=== PATIENT | female | born 1990 | race Caucasian/White ===

== ENCOUNTER 2018-06-30 10:33 | Emergency (ER) | payer OTHER ==
[~2018-06-30] VITALS: Ht 162.6 cm; Wt 67.0 kg
[2018-06-30 11:37] VITALS: BP 132/81
[2018-06-30] MEDS ORDERED: PENI250T2 PO (11:52)
== END 2018-06-30 12:02 | disposition home or self-care (01) ==
LOC: ER 10:33
DX: K04.7 Periapical abscess without sinus (principal); Z88.2 Allergy status to sulfonamides
CPT/HCPCS: 99283

== ENCOUNTER 2022-08-31 16:53 | Emergency (ER) | payer MEDICAID ==
[~2022-08-31] VITALS: Ht 163.8 cm; Wt 78.0 kg
[2022-08-31 17:34] VITALS: BP 113/68
[2022-08-31] MEDS ORDERED: PENI250T2 PO (17:59)
[2022-08-31] MEDS ORDERED: NAPR-56 PO (17:59)
== END 2022-08-31 18:20 | disposition home or self-care (01) ==
LOC: ER 16:53
DX: K04.7 Periapical abscess without sinus (principal); Z88.2 Allergy status to sulfonamides; Z79.899 Other long term (current) drug therapy; Z79.2 Long term (current) use of antibiotics
CPT/HCPCS: 99283

== ENCOUNTER 2023-07-17 12:54 | Emergency (ER) | payer MEDICAID ==
[~2023-07-17] VITALS: Ht 165.1 cm; Wt 75.0 kg
[2023-07-17 13:08] VITALS: BP 136/81; PULSE 95; RESP 20; TEMP 97.2; O2SAT 98
[2023-07-17] MEDS ORDERED: CLIN300C3 PO (13:21)
[2023-07-17] MEDS ORDERED: IBUP-1984 PO (13:21)
[2023-07-17] MEDS ORDERED: HYDR-3965 PO (13:21)
[2023-07-17] MEDS ORDERED: clindamycin 150mg capsule PO STA (13:28)
[2023-07-17] MEDS ORDERED: ibuprofen tablet 400 MG TABLET PO ONE (13:30)
== END 2023-07-17 13:38 | disposition home or self-care (01) ==
LOC: ER 12:54
DX: K04.7 Periapical abscess without sinus (principal)
CPT/HCPCS: 99283

== ENCOUNTER 2023-10-13 10:45 | Emergency (ER) | payer MEDICAID ==
[~2023-10-13] VITALS: Ht 162.6 cm; Wt 72.9 kg
[2023-10-13 11:08] VITALS: BP 127/71; PULSE 83; RESP 16; TEMP 98.3; O2SAT 99
[2023-10-13] MEDS ORDERED: CLIN300C71 PO (11:13)
[2023-10-13] MEDS ORDERED: NAPR-56 PO (11:13)
== END 2023-10-13 11:18 | disposition home or self-care (01) ==
LOC: ER 10:45
DX: L03.114 Cellulitis of left upper limb (principal); Z88.2 Allergy status to sulfonamides
CPT/HCPCS: 99283

== ENCOUNTER 2023-11-01 10:53 | Emergency (ER) | payer MEDICAID ==
[~2023-11-01] VITALS: Ht 162.6 cm; Wt 76.3 kg
[~2023-11-01 10:53] MED LIST: NAPR-56 PO
[2023-11-01 11:04] VITALS: BP 115/65; PULSE 75; TEMP 98.3; O2SAT 99
[2023-11-01] MEDS ORDERED: AMOX-117 PO (11:14)
[2023-11-01 11:19] VITALS: RESP 16
[2023-11-01] MEDS: ketorolac trometh inj. 60 MG/2 ML VIAL IM ONE (11:19)
== END 2023-11-01 11:33 | disposition home or self-care (01) ==
LOC: ER 10:53
DX: K02.9 Dental caries, unspecified (principal); K08.89 Other specified disorders of teeth and supporting structures; Z88.2 Allergy status to sulfonamides; Z79.899 Other long term (current) drug therapy
CPT/HCPCS: 96372; 99283; J1885

== ENCOUNTER 2024-06-20 12:46 | Emergency (ER) | payer MEDICAID ==
[~2024-06-20] VITALS: Ht 167.6 cm; Wt 72.1 kg
[2024-06-20 12:53] VITALS: BP 144/74; PULSE 82; RESP 16; TEMP 98; O2SAT 99
[2024-06-20 13:29] LABS: BASOPHILS % (AUTO) 0.2 % (0-1); EOSINOPHILS % (AUTO) 0.1 % (0-6); HEMATOCRIT 42.5 % (35.0-45.0); HEMOGLOBIN 14.5 g/dl (12.0-16.0); LYMPHOCYTES # (AUTO) 1.3 X10'3 (1.1-4.8); LYMPHOCYTES % (AUTO) 14.7 % (21-51); MEAN CORPUSCULAR HEMOGLOBIN 29.2 PG (27.0-31.0); MEAN CORPUSCULAR HGB CONC 34.1 g/dL (33.0-36.5); MEAN CORPUSCULAR VOLUME 85.6 FL (78-98); MEAN PLATELET VOLUME 7.9 FL (7.4-10.4); MONOCYTES # (AUTO) 0.6 X10'3 (0-0.9); MONOCYTES % (AUTO) 6.9 % (2-12); NEUTROPHILS # (AUTO) 7.1 X10'3 (1.8-7.7); NEUTROPHILS % (AUTO) 78.1 % (42-75); PLATELET COUNT 254 X10'3 (140-440); RED BLOOD COUNT 4.96 X10'6 (4.20-5.60); RED CELL DISTRIBUTION WIDTH 12.5 % (11.5-14.5)
[2024-06-20 13:53] LABS: ALANINE AMINOTRANSFERASE 27 U/L (12-78); ALBUMIN 3.6 G/DL (3.4-5.0); ALBUMIN/GLOBULIN RATIO 0.8 (1.1-1.5); ALKALINE PHOSPHATASE 98 IU/L (46-116); ANION GAP 8 (8-16); ASPARTATE AMINO TRANSFERASE 19 U/L (10-37); BILIRUBIN,TOTAL 0.6 MG/DL (0.1-1.0); BLOOD UREA NITROGEN 8 MG/DL (7-18); BUN/CREATININE RATIO 9.5 (10.0-20.0); CALCIUM 9.2 MG/DL (8.5-10.1); CHLORIDE 99 MMOL/L (99-107); CREATININE 0.84 MG/DL (0.40-0.90); GLUCOSE 97 MG/DL (70-104); LIPASE 24 U/L (16-77); POTASSIUM 4.1 MMOL/L (3.5-5.1); SODIUM 131 MMOL/L (135-145); TOTAL PROTEIN 8.1 G/DL (6.4-8.2); eCRCL 90 ML/MIN; eGFR 79 ML/MIN
== END 2024-06-20 21:39 | disposition left against medical advice (07) ==
LOC: ER 12:46
DX: R10.84 Generalized abdominal pain (principal); R11.0 Nausea; Z88.2 Allergy status to sulfonamides
CPT/HCPCS: 36415; 80053; 83690; 85025; 99283

== ENCOUNTER 2024-06-22 15:32 | Emergency (ER) | payer MEDICAID ==
[~2024-06-22] VITALS: Ht 162.6 cm; Wt 70.7 kg
[2024-06-22 15:39] VITALS: TEMP 98
[2024-06-22 16:12] LABS: BASOPHILS % (AUTO) 0.2 % (0-1); EOSINOPHILS % (AUTO) 0.3 % (0-6); HEMATOCRIT 41.8 % (35.0-45.0); HEMOGLOBIN 13.9 g/dl (12.0-16.0); LYMPHOCYTES # (AUTO) 1.7 X10'3 (1.1-4.8); LYMPHOCYTES % (AUTO) 22.8 % (21-51); MEAN CORPUSCULAR HEMOGLOBIN 28.5 PG (27.0-31.0); MEAN CORPUSCULAR HGB CONC 33.3 g/dL (33.0-36.5); MEAN CORPUSCULAR VOLUME 85.6 FL (78-98); MEAN PLATELET VOLUME 8.1 FL (7.4-10.4); MONOCYTES # (AUTO) 0.6 X10'3 (0-0.9); MONOCYTES % (AUTO) 7.7 % (2-12); NEUTROPHILS # (AUTO) 5.2 X10'3 (1.8-7.7); PLATELET COUNT 278 X10'3 (140-440); RED BLOOD COUNT 4.88 X10'6 (4.20-5.60); RED CELL DISTRIBUTION WIDTH 12.6 % (11.5-14.5); WHITE BLOOD COUNT 7.6 X10'3 (4.5-11.0)
[2024-06-22 16:20] LABS: ALANINE AMINOTRANSFERASE 22 U/L (12-78); ALBUMIN 3.2 G/DL (3.4-5.0); ALBUMIN/GLOBULIN RATIO 0.7 (1.1-1.5); ALKALINE PHOSPHATASE 93 IU/L (46-116); ANION GAP 6 (8-16); ASPARTATE AMINO TRANSFERASE 18 U/L (10-37); BILIRUBIN,TOTAL 0.2 MG/DL (0.1-1.0); BLOOD UREA NITROGEN 5 MG/DL (7-18); CALCIUM 9.2 MG/DL (8.5-10.1); CHLORIDE 101 MMOL/L (99-107); CREATININE 0.71 MG/DL (0.40-0.90); GLUCOSE 98 MG/DL (70-104); LIPASE 24 U/L (16-77); POTASSIUM 3.7 MMOL/L (3.5-5.1); SODIUM 134 MMOL/L (135-145); TOTAL CARBON DIOXIDE 27.1 MMOL/L (24-32); TOTAL PROTEIN 7.9 G/DL (6.4-8.2); eCRCL 98 ML/MIN; eGFR > 90 ML/MIN
[2024-06-22 16:40] LABS: BILIRUBIN,URINE NEGATIVE (Neg); CLARITY,URINE CLEAR (Clear); COLOR,URINE YELLOW (Yellow); GLUCOSE, URINE NEGATIVE (Neg); KETONES,URINE 40 mg/dl (Neg); LEUKOCYTE ESTERASE ,URINE NEGATIVE (Neg); NITRITES, URINE NEGATIVE (Neg); OCCULT BLOOD,URINE TRACE-INTACT (Neg); PROTEIN,URINE NEGATIVE (Neg); UROBILINOGEN,URINE 0.2 E.U/dL (0.2-1.0)
[2024-06-22 16:42] LABS: URINE HCG NEGATIVE (NEG)
[2024-06-22] MEDS: proCHLORperazine 10 MG/2 ml inj IV ONE (16:44)
[2024-06-22] MEDS: diphenhydrAMINE 50 mg/ml inj IV ONE (16:44)
[2024-06-22 16:47] LABS: UA COLLECTION TYPE CLN CATCH MIDSTREAM
[2024-06-22 16:48] LABS: BACTERIA,URINE 1+ /HPF (Neg); MUCUS STRANDS MODERATE /LPF (Neg); RBC,URINE 0-2 /HPF (0-2); SQUAMOUS EPITHELIAL CELL,UR MODERATE /LPF (FEW); WBC,URINE 0-4 /HPF (0-4)
[2024-06-22] MEDS: ketorolac trometh 15mg/ml vial 15 MG/ML ML IV ONE (16:50)
[2024-06-22] MEDS ORDERED: ONDA-245 PO (17:07)
[2024-06-22] MEDS: normal saline 1000ML IV soln IVB ONE (17:23)
[2024-06-22 17:29] VITALS: BP 104/65; PULSE 65; RESP 15; O2SAT 100
== END 2024-06-22 17:37 | disposition home or self-care (01) ==
LOC: ER 15:33
DX: R10.84 Generalized abdominal pain (principal); Z88.2 Allergy status to sulfonamides
CPT/HCPCS: 36415; 80053; 81001; 81025; 83690; 85025; 96374; 96375; 99284; J0780; J1200; J1885; J7030